=== PATIENT | male | born 1970 | race Caucasian/White ===

== ENCOUNTER 2022-03-30 09:53 | Day surgery (SDC) | payer OTHER ==
[2022-03-29 13:05] VITALS: BMI 28.0
[2022-03-30] MEDS ORDERED: Bupivacaine 0.25% HCL 30 ML VIAL ONE (10:27)
[2022-03-30] MEDS ORDERED: Lidocaine 1% (PF) 30 ML VIAL ONE (10:27)
[2022-03-30] MEDS ORDERED: CEFAZOLIN 2 GM VIAL ONE (11:02)
[2022-03-30] MEDS ORDERED: Sodium Chloride 0.9% 100 ML ONE (11:02)
[2022-03-30 11:08] LABS: Anion Gap 14 mmol/L (10-20); BUN (Urea Nitrogen) 22 mg/dL (8.9-20.6); Calc. Creatinine Clearance 131 mL/min (70-130); Calcium 8.8 mg/dL (7.8-10.44); Carbon Dioxide 23 mmol/L (22-29); Chloride 107 mmol/L (98-107); Estimated GFR 107; Glucose 94 mg/dL (70-105); Potassium 4.4 mmol/L (3.5-5.1); Sodium 140 mmol/L (136-145)
[2022-03-30] MEDS ORDERED: fentaNYL PF 100 MCG/2 ML SYRINGE ONE (11:40)
[2022-03-30] MEDS ORDERED: Ondansetron PF 4 MG/2 ML Vial ONE (11:49)
[2022-03-30] MEDS ORDERED: Ketorolac Tromethamine 30 MG/ML VIAL ONE (11:49)
[2022-03-30] MEDS ORDERED: Dexamethasone 20 MG/5 ML VIAL ONE (11:49)
[2022-03-30] MEDS ORDERED: PROPOFOL 200 MG/20 ML VIAL ONE (11:49)
[2022-03-30] MEDS ORDERED: HYDROmorphone 2 MG/ML VIAL ONE (12:54)
[2022-03-30] MEDS ORDERED: FENTANYL 50 MCG/ML 1 ML VIAL ONE (13:53)
== END 2022-03-30 15:00 | disposition home or self-care (01) ==
LOC: SDC 09:53
PROVIDERS: ATTEND Surgery Surgery of the Hand
PROC: 0RQT0ZZ Repair Left Carpometacarpal Joint, Open Approach (ICD-10-PCS; principal; 2022-03-30)
PROC: 0RBP0ZZ Excision of Left Wrist Joint, Open Approach (ICD-10-PCS; principal; 2022-03-30)
PROC: 01N50ZZ Release Median Nerve, Open Approach (ICD-10-PCS; principal; 2022-03-30)
DX: M18.12 Unilateral primary osteoarthritis of first carpometacarpal joint, left hand (principal); M67.432 Ganglion, left wrist; G56.02 Carpal tunnel syndrome, left upper limb
CPT/HCPCS: 80048; 88304; 93005; 93010; C1713; J1100; J1170; J1885; J2001; J2405; J2704; J3010; J3490; S0020

== ENCOUNTER 2022-12-14 11:01 | Day surgery (SDC) | payer OTHER ==
[2022-12-12 12:13] VITALS: BMI 30.1
[2022-12-14] MEDS ORDERED: fentaNYL PF 100 MCG/2 ML SYRINGE ONE (11:30)
[2022-12-14] MEDS ORDERED: Famotidine/PF 20 mg/2ml Vial ONE (11:43)
[2022-12-14] MEDS ORDERED: Bupivacaine PF 0.5% 30 ML VIAL ONE (11:44)
[2022-12-14] MEDS ORDERED: EPINEPHrine 1 MG/ML AMP ONE ×2 (11:44→12:36)
[2022-12-14] MEDS ORDERED: Sodium Chloride 0.9% 100 ML ONE (11:58)
[2022-12-14] MEDS ORDERED: CEFAZOLIN 2 GM VIAL ONE (11:58)
[2022-12-14 12:13] LABS: Anion Gap 11 mmol/L (10-20); BUN (Urea Nitrogen) 24 mg/dL (8.9-20.6); Calc. Creatinine Clearance 132 mL/min (70-130); Calcium 9.2 mg/dL (7.8-10.44); Carbon Dioxide 25 mmol/L (22-29); Chloride 107 mmol/L (98-107); Estimated GFR 104; Glucose 97 mg/dL (70-105); Potassium 4.2 mmol/L (3.5-5.1); Sodium 139 mmol/L (136-145)
[2022-12-14] MEDS ORDERED: Dexamethasone 20 MG/5 ML VIAL ONE (12:33)
[2022-12-14] MEDS ORDERED: PROPOFOL 200 MG/20 ML VIAL ONE (12:33)
[2022-12-14] MEDS ORDERED: Ondansetron PF 4 MG/2 ML Vial ONE (12:33)
[2022-12-14] MEDS ORDERED: Ketorolac Tromethamine 30 MG/ML VIAL ONE (12:33)
[2022-12-14] MEDS ORDERED: Lidocaine 1% PF 5 ML VIAL ONE (12:33)
[2022-12-14] MEDS ORDERED: Bupivacaine 0.25% HCL 30 ML VIAL ONE (12:36)
[2022-12-14] MEDS ORDERED: Lidocaine 1% (PF) 30 ML VIAL ONE (12:36)
[2022-12-14] MEDS ORDERED: PROPOFOL 20 ML ONE (13:17)
== END 2022-12-14 15:26 | disposition home or self-care (01) ==
LOC: SDC 11:01
PROVIDERS: ATTEND Surgery Surgery of the Hand
PROC: 0RRS0JZ Replacement of Right Carpometacarpal Joint with Synthetic Substitute, Open Approach (ICD-10-PCS; principal; 2022-12-14)
DX: M18.11 Unilateral primary osteoarthritis of first carpometacarpal joint, right hand (principal)
CPT/HCPCS: 80048; C1713; J0171; J1100; J1885; J2001; J2405; J2704; J3490; S0020; S0028